=== PATIENT | female | born 1995 | race Caucasian/White ===

== ENCOUNTER 2020-04-15 15:56 | Emergency (ER) | payer OTHER, SELFPAY ==
[2020-04-15 16:13] VITALS: BP 115/74; PULSE 98; RESP 18; TEMP 36.6; O2SAT 99; BMI 54.8
[2020-04-15 17:12] VITALS: BP 122/78; PULSE 89; RESP 16; TEMP 36.6; O2SAT 100
--- NOTE | 2020-04-15 17:17 | PC.NURSE ---
pt was at [facility] and they said that her optic nerve is swollen and he needs her to be checked for pressures.
--- NOTE | 2020-04-15 17:28 | CT_ITS ---
EXAMINATION: CT HEAD WITHOUT CONTRAST CLINICAL INFORMATION: New papilledema. Rule out mass lesion COMPARISON: 09/05/2019 TECHNIQUE: Contiguous axial imaging was performed from the skull base to vertex without intravenous administration of contrast. This CT examination was performed using dose optimization techniques as appropriate, variously including the following: *Automated exposure control *Adjustment of mA and/or kV according to patient size (this includes techniques or standardized protocols for targeted exams where dose is matched to indication/reason for exam; i.e. extremities or head) *Use of iterative reconstruction technique DLP: 756 mGy-cm FINDINGS: There is no evidence of acute intracranial hemorrhage or territorial infarction. No abnormal mass effect or midline shift is seen. Saunders to white matter differentiation is well preserved. No extra-axial fluid collections are identified. The ventricles are normal in size. There is no abnormal attenuation within the brain parenchyma. The osseous structures and soft tissues are normal. The mastoid air cells and visualized portions of the paranasal sinuses are well aerated. CT/CT head/brain wo con IMPRESSION: No acute intracranial pathology.
--- NOTE | 2020-04-15 17:29 | ED_ITS ---
HPI - Eye Problem General Chief complaint: Eye Problems Stated complaint: EYE PROBLEM Time Seen by Provider: 04/15/20 16:41 Source: patient Mode of arrival: ambulatory Limitations: no limitations History of Present Illness HPI Narrative: 24 y/o female with history of myopia since childhood, astigmatism, dry eyes, DM2 diet controlled, obesity, seizures who presented to ED from [facility] with concern of new papilledema seen on exam. Patient reports going to her regular eye doctor yesterday, where her eyes were dilated and exam showed concerns for optic disc edema. She was referred to specialist at [facility] today - examination showed bilateral subconjunctival hemorrhage hemorrhage, IOP of 22 on the right and 20 on the left. Fundus exam with mild edema on the left. She was referred to the ED for emergent imaging. She reports new onset of painless red spots in her eyes 3 days ago. No vomiting or coughing. She reports new mild fogged vision in her left eye today. She also states the vision in her left eye has gotten worsen since she was last seen by her eye doctor in July 2019. chief complaint: vision change Onset (ago): day(s) (1) Onset description: sudden Duration: constant Location: left eye Eye Symptoms: redness and blurry vision Place: home Mechanism: none Severity: mild Severity scale (1-10): 5 Related Data Allergies Allergy/AdvReac Type Severity Reaction Status Date / Time nickel [NICKEL] Allergy Unknown RASH Unverified 01/17/20 16:27 Review of Systems Review of Systems: Constitutional: No Fever, No Chills ENT/Mouth: No sore throat, No Rhinorrhea, No Swallowing Difficulty Eyes: No Eye Pain, No Swelling, + Redness Cardiovascular: No Chest Pain, No SOB Respiratory: No Cough, No Sputum Gastrointestinal: No Nausea, No Vomiting, No Diarrhea, No abdominal Pain Genitourinary: No Dysuria, No Urinary Frequency, No Hematuria Musculoskeletal: No joint pain, No Myalgias Skin: No Skin Lesions, No rash Neuro: No Weakness, No Numbness, + Dizziness (intermittent), No Headache Psych: + Anxiety/Panic, No Depression Heme/Lymph: No Bruising, No Lymphadenopathy PMFSH Past Medical History Attestation statement: The following information was validated with the patient. Medical History Asthma Scoliosis Seizure Surgical History (Updated 04/15/20 @ 16:23 by Grecia Wills) Hx of appendectomy Social History Social History Alcohol intake: never Smoked in Last 30 Days: No Use of substances other than those prescribed or required for medical reasons: No Advance Directives: No Advance Directives Information Provided: No Physical Exam Vital Signs: Vital Signs: Last Vital Signs Temp 98 F 04/15/20 17:12 Pulse 89 04/15/20 17:12 Resp 16 04/15/20 17:12 BP 122/78 04/15/20 17:12 Pulse Ox 100 04/15/20 17:12 Body Mass Index 54.8 Appearance: Alert. Oriented X3. No acute distress. Eyes: Pupils equal, round and reactive to light. small bilateral conjunctival hemorrhage, EOMI. ENT: Pharynx normal. Neck: Normal inspection. Neck supple. CVS: Normal heart rate and rhythm. Pulses normal. Respiratory: No respiratory distress. Breath sounds normal. Abdomen: Obese, soft and nontender. +BS x4 Skin: Skin warm and dry. Normal skin color. Normal skin turgor. No rashes. Extremities: No lower extremity edema. Neuro: Oriented X 3. No motor deficit. No sensory deficit. Course Course Course Narrative: 24 y/o female presenting with newly diagnosed left sided optic disc edema referred by medical logistics specialist for prompt CT scan to r/o increased ICP or mass effect. CT scan ordered. [facility] from earlier this afternoon. Reevaluation(s) Reevaluation #1: CT scan negative. Case was d/w Dr. Jarquin - patient's presentation may be consistent with pseudotumor cerebri. No emergent need for LP at this time. She has history of scoliosis and chronic back pain. Given her body habitus she would benefit from LP under fluoroscopic guidance. She has a neurologist at [facility] and will call tomorrow morning to arrange outpatient LP. Patient expressed understanding of getting this arranged within the next week or 2 and will present back if she has worsening vision changes or headache. Stable for d/c. Consultations Consultation #1: Dr. 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 Your case was discussed with our eye doctor here - it is possible that you have increased spinal fluid causing compression of your nerve in your eye. Recommend you follow up with your Neurologist to arrange for a lumbar puncture in the next 1-2 weeks. This is not an emergency that needs to be performed today. If you develop worsening vision changes or headaches, come back to the ER for further evaluation. Weight loss is known to help with this condition. Follow up with your Neurology doctor as soon as possible. Interventions: ED Discharge Assessment Last Done: 04/15/20 20:57 Discharge Date/Time: 04/15/20 21:00 Print Language: Occitan
--- NOTE | 2020-04-15 20:59 | PC.NURSE ---
DR PENALOZA AT BEDSIDE WITH ADELINA CHAVEZ TO ASSESS PT.
== END 2020-04-15 21:00 | disposition home or self-care (01) ==
PROVIDERS: Emergency Provider Internal Medicine
DX: H11.33 Conjunctival hemorrhage, bilateral (principal); H57.12 Ocular pain, left eye
CPT/HCPCS: 70450; 99284

== ENCOUNTER 2021-04-01 17:01 | Emergency (ER) | payer OTHER, SELFPAY ==
--- NOTE | ~2021-04-01 | CT_ITS ---
EXAMINATION: CT ABDOMEN AND PELVIS WITHOUT CONTRAST CLINICAL INFORMATION: Rectal bleeding, rule out colitis COMPARISON: CT abdomen pelvis 09/25/2015 TECHNIQUE: Multidetector volumetric imaging was performed from the superior aspect of the liver through the pubic symphysis. Sagittal and coronal reformatted images were obtained on the technologist's workstation. This CT examination was performed using dose optimization techniques as appropriate, variously including the following: *Automated exposure control *Adjustment of mA and/or kV according to patient size (this includes techniques or standardized protocols for targeted exams where dose is matched to indication/reason for exam; i.e. extremities or head) *Use of iterative reconstruction technique DLP: 1416 mGy-cm FINDINGS: LUNG BASES: The visualized lung bases are unremarkable. LIVER, GALLBLADDER, AND BILIARY TREE: The liver is enlarged measuring 23.3 cm in cephalocaudad dimension and demonstrates decreased attenuation consistent with hepatic steatosis. Areas of focal fatty sparing are present around the gallbladder. No focal hepatic lesion or biliary ductal dilatation is present. The gallbladder is unremarkable with no evidence of radiopaque gallstones, gallbladder wall thickening, or obvious pericholecystic inflammatory changes. PANCREAS: Unremarkable. SPLEEN: Unremarkable. ADRENAL GLANDS: Unremarkable. KIDNEYS AND URETERS: The kidneys are normal in size, shape, and attenuation. No hydronephrosis, hydroureter, or calculi seen. No perinephric stranding. BLADDER: Unremarkable. GASTROINTESTINAL TRACT: The small and large bowel are unremarkable. There is no evidence of colitis. The appendix has been removed. ABDOMINAL WALL: No significant hernia is appreciated. LYMPH NODES: Normal. VASCULAR: Unremarkable. PELVIC VISCERA: An anteverted uterus is present. An abnormal adnexal mass or free intraperitoneal fluid is not seen. OSSEOUS STRUCTURES: Unremarkable. CT/CT abdomen pelvis wo con IMPRESSION: 1. Enlarged fatty liver. 2. No evidence of colitis. 3. Interval appendectomy Fleischner guidelines were followed.
[2021-04-01 17:07] VITALS: BP 136/89; PULSE 85; RESP 18; TEMP 36.9; O2SAT 98; BMI 53.2
[2021-04-01 19:08] LABS: MANUAL DIFF FLAG NO
--- NOTE | 2021-04-01 19:14 | ED.GIBLEED ---
HPI - GI Bleed General Chief complaint: Abdominal Pain <Shahida Mcneil MD - Last Filed: 04/01/21 21:08> Stated complaint: rectal bleed <Shahida Mcneil MD - Last Filed: 04/01/21 21:08> Time Seen by Provider: 04/01/21 19:12 <Shahida Mcneil MD - Last Filed: 04/01/21 21:08> Source: patient and family ( mother) <Shahida Mcneil MD - Last Filed: 04/01/21 21:08> Mode of arrival: ambulatory <Shahida Mcneil MD - Last Filed: 04/01/21 21:08> Limitations: no limitations <Shahida Mcneil MD - Last Filed: 04/01/21 21:08> History of Present Illness HPI Narrative: 25-year-old female came in for evaluation of rectal bleeding. Patient notice bright red blood rectal bleeding started since this morning, patient decline abdominal pain or discomfort, bleeding has been constant all day today, patient declined any dizziness or chest pain or feeling lightheadedness. Patient declines taking any NSAIDs or blood thinner. Patient declined any prior history of rectal bleeding. <Shahida Mcneil MD - Last Filed: 04/01/21 21:08> Related Data Home medications: Home Medications Medication Instructions Recorded Confirmed acetazolamide 250 mg tablet mg PO 04/01/21 clonidine HCl 0.1 mg tablet 0.1 mg PO BID 04/01/21 escitalopram oxalate 20 mg tablet 20 mg PO DAILY 04/01/21 hydroxyzine HCl 50 mg tablet 50 mg PO BEDTIME 04/01/21 mirtazapine 45 mg tablet 45 mg PO BEDTIME 04/01/21 oxcarbazepine 300 mg tablet 300 mg PO BID 04/01/21 prazosin 1 mg capsule 1 mg PO BEDTIME 04/01/21 sodium fluoride 1.1 %-potassium PO 04/01/21 nitrate 5 % dental paste Previous Rx's Medication Instructions Recorded hydrocortisone 1 %-pramoxine 1 % 1 appl DC QID PRN #10 g 04/01/21 rectal foam (Proctofoam HC) <Shahida Mcneil MD - Last Filed: 04/01/21 21:08> Allergies/Adverse reactions: Allergies Allergy/AdvReac Type Severity Reaction Status Date / Time nickel [NICKEL] Allergy Unknown RASH Verified 04/01/21 16:18 <Shahida Mcneil MD - Last Filed: 04/01/21 21:08> Review of Systems Review of Systems: All other systems are reviewed and are negative Constitutional: Reports as per HPI and Reports no additional constitutional complaints Eyes: Reports as per HPI and Reports no additional eye complaints Reports system reviewed and no additional complaints, except as documented Cardiovascular: Reports as per HPI and Reports no additional cardiovascular complaints Respiratory: Reports as per HPI and Reports no additional respiratory complaints Gastrointestinal: Reports as per HPI and Reports no additional gastrointestinal complaints Genitourinary: Reports no additional female genitourinary complaints Musculoskeletal: Reports no additional musculoskeletal complaints Skin/Breast: Reports system reviewed and no additional complaints, except as docu Psychiatric: Reports no additional psychiatric complaints Endocrine: Reports no additional endocrine complaints Hematologic/Lymphatic: Reports no additional hematologic/lymphatic complaints Allergic/Immunologic: Reports no additional allergic/immunologic complaints Reports system reviewed and no additional complaints, except as documented and Reports Abnormal speech present <Shahida Mcneil MD - Last Filed: 04/01/21 21:08> [facility] Past Medical History Medical History: Medical History Asthma Scoliosis Seizure <Shahida Mcneil MD - Last Filed: 04/01/21 21:08> Surgical History: Surgical History Hx of appendectomy <Shahida Mcneil MD - Last Filed: 04/01/21 21:08> Social History Social History: Social History Alcohol intake: never Advance Directives: No Advance Directives Information Provided: Yes Patient : No <Shahida Mcneil MD - Last Filed: 04/01/21 21:08> Physical Exam Vital Signs: Vital Signs: Last Vital Signs Temp 98.8 F 04/01/21 20:35 Pulse 67 04/01/21 20:35 Resp 18 04/01/21 20:35 BP 132/74 04/01/21 20:35 Pulse Ox 97 04/01/21 20:35 BMI result Body Mass Index 53.2 vital signs have been reviewed as appeared to be correct. Blood pressure normal. Heart rate normal. Respiration rate normal. Temperature normal. Oxygen saturation normal. <Shahida Mcneil MD - Last Filed: 04/01/21 21:08> Vital Signs: Last Vital Signs Temp 98.8 F 04/01/21 20:35 Pulse 67 04/01/21 20:35 Resp 18 04/01/21 20:35 BP 132/74 04/01/21 20:35 Pulse Ox 97 04/01/21 20:35 BMI result Body Mass Index 53.2 <Cristina Yancey DO - Last Filed: 04/01/21 21:51> Appearance: Alert. Oriented X3. No acute distress. Head: Normal external exam. Normocephalic. Atraumatic. No Sauceda signs noted. No raccoon eyes noted Eyes: PERRLA. EOMI. Conjunctiva and sclera normal. Eyelids normal. ENT: TM's Normal. Pharynx normal. Uvula midline. Moist mucous membranes. No trismus noted. No drooling noted. No muffled voice noted. Neck: Normal inspection. Neck supple. FROM. No adenopathy. Thyroid Normal. No meningeal signs. No neck mass noted. CVS: Normal heart rate and rhythm. Heart sound normal. No murmurs noted. Pulses normal throughout. Respiratory: No respiratory distress. Painless inspiration. Breath sounds normal. No wheezes/rales/rhonchi noted. Chest nontender. No accessory muscle usage noted or decreased air movement noted. Abdomen: Soft and nontender. Bowel sounds normal in all 4 quadrants. No distention noted. No organomegaly noted. No visible injury noted. Rectal exam: Exam was done in the present of RN Only via as a female hides soaker in the room, no external hemorrhoid, no internal hemorrhoid, bright red blood in the rectum. Back: No CVA tenderness. Full range of motion noted. Skin: Skin warm and dry. Normal skin color. Normal skin turgor. No rashes/lesions/lacerations noted. Extremities: No lower extremity edema. Extremities exhibit normal range of motion. Extremities nontender. Neuro: Oriented X 3. Cranial nerve exam: II-XII are grossly intact No motor deficit. No sensory deficit. Reflexes normal. <Shahida Mcneil MD - Last Filed: 04/01/21 21:08> Course Course Course Narrative: Assessment and plan. 25-year-old female came in for bright red blood per rectum for 1 day, patient otherwise hemodynamically stable with stable H&H, patient is actively bleeding per rectum, physical exam / CT of the abdomen pelvis show no definitive source of the bleed. Will admit the patient for observation and serial CBC, and inpatient GI consultation. <Shahida Mcneli MD - Last Filed: 04/01/21 21:08> Assessment and plan. 25-year-old female came in for bright red blood per rectum for 1 day, patient otherwise hemodynamically stable with stable H&H, patient is actively bleeding per rectum, physical exam / CT of the abdomen pelvis show no definitive source of the bleed. Will admit the patient for observation and serial CBC, and inpatient GI consultation. notified by hospitalist that she interviewed the patient and called GI Dr. Flaherty H/H and VS are stable these are hemorrhoids and after consultation via phone with GI this does not require admission. The patient does not want to stay either at this time after her discussion with Dr. Silva. Discharge recommended by hospitalist and GI doctor - Dr. Yancey note written by me to discuss discharge I was not involved in patient's direct care I did review her labs, VS and CT scan <Cristina Yancey DO - Last Filed: 04/01/21 21:51> MDM - GI Bleed Medical Records Attestation: I reviewed the patient's medical records. <Shahida Mcneil MD - Last Filed: 04/01/21 21:08> Lab Data Attestation: I reviewed the patient's lab results. <Shahida Mcneil MD - Last Filed: 04/01/21 21:08> Result diagrams: : 04/01/21 19:03 04/01/21 19:03 <Shahida Mcneil MD - Last Filed: 04/01/21 21:08> Labs: Lab Results 04/01/21 04/01/21 04/01/21 Range/Units 19:03 19:03 19:23 WBC 9.1 (4.8-10.8) X10*3/uL RBC 4.51 (4.20-5.50) X10*6/uL Hgb 13.0 (12.0-16.0) g/dl Hct 39.0 (37.0-47.0) % MCV 86.5 (80.0-98.0) fL MCH 28.8 (27.0-33.0) pg MCHC 33.3 (31.0-35.0) g/dl RDW 11.9 (11.0-16.0) % Plt Count 204 (160-400) X10*3/uL MPV 9.1 L (9.4-12.3) fL Immature Gran % (Auto) 0.4 (0.0-0.4) % Neut % (Auto) 67.3 (45-73) % Lymph % (Auto) 24.5 (20-40) % Parmer % (Auto) 6.0 (2-11) % Eos % (Auto) 1.5 (0-4) % Baso % (Auto) 0.3 (0-2) % Lymph # (Auto) 2.2 (1.2-4.9) X10*3/uL Parmer # (Auto) 0.5 (0.1-1.2) X10*3/uL Eos # (Auto) 0.1 (0.0-0.4) X10*3/uL Baso # (Auto) 0.0 (0.0-0.2) X10*3/uL Abs Immat Gran (auto) 0.04 H (0.00-0.03) X10*3/uL Absolute Neuts (auto) 6.1 (2.0-8.3) x10*3/uL Absolute Nucleated RBC 0.000 (0.0-0.012) X10*3/uL Nucleated RBC % (auto) 0.0 (0.0-0.2) /100WBC Sodium 140 (135-145) mmol/L Potassium 3.7 (3.3-5.1) mmol/L Chloride 114 H (96-108) mmol/L Carbon Dioxide 17 L (22-29) mmol/L Anion Gap 13 (12-20) BUN 15 (9-16) mg/dL Creatinine 0.92 (0.5-1.4) mg/dL Estim Creat Clear Calc 143.0 Estimated GFR > 60 Random Glucose 89 (60-115) mg/dL Calcium 9.2 (8.4-10.2) mg/dL Total Bilirubin 0.4 (0.0-1.0) mg/dL AST 29 (5-31) U/L ALT 31 (0-31) U/L Alkaline Phosphatase 57 (39-117) U/L Total Protein 6.9 (6.5-8.0) g/dL Albumin 4.2 (3.5-5.0) g/dL Stool Occult Blood POSITIVE (NEGATIVE) <Shahida Mcneil MD - Last Filed: 04/01/21 21:08> Lab Results 04/01/21 04/01/21 04/01/21 Range/Units 19:03 19:03 19:23 WBC 9.1 (4.8-10.8) X10*3/uL RBC 4.51 (4.20-5.50) X10*6/uL Hgb 13.0 (12.0-16.0) g/dl Hct 39.0 (37.0-47.0) % MCV 86.5 (80.0-98.0) fL MCH 28.8 (27.0-33.0) pg MCHC 33.3 (31.0-35.0) g/dl RDW 11.9 (11.0-16.0) % Plt Count 204 (160-400) X10*3/uL MPV 9.1 L (9.4-12.3) fL Immature Gran % (Auto) 0.4 (0.0-0.4) % Neut % (Auto) 67.3 (45-73) % Lymph % (Auto) 24.5 (20-40) % Parmer % (Auto) 6.0 (2-11) % Eos % (Auto) 1.5 (0-4) % Baso % (Auto) 0.3 (0-2) % Lymph # (Auto) 2.2 (1.2-4.9) X10*3/uL Parmer # (Auto) 0.5 (0.1-1.2) X10*3/uL Eos # (Auto) 0.1 (0.0-0.4) X10*3/uL Baso # (Auto) 0.0 (0.0-0.2) X10*3/uL Abs Immat Gran (auto) 0.04 H (0.00-0.03) X10*3/uL Absolute Neuts (auto) 6.1 (2.0-8.3) x10*3/uL Absolute Nucleated RBC 0.000 (0.0-0.012) X10*3/uL Nucleated RBC % (auto) 0.0 (0.0-0.2) /100WBC Sodium 140 (135-145) mmol/L Potassium 3.7 (3.3-5.1) mmol/L Chloride 114 H (96-108) mmol/L Carbon Dioxide 17 L (22-29) mmol/L Anion Gap 13 (12-20) BUN 15 (9-16) mg/dL Creatinine 0.92 (0.5-1.4) mg/dL Estim Creat Clear Calc 143.0 Estimated GFR > 60 Random Glucose 89 (60-115) mg/dL Calcium 9.2 (8.4-10.2) mg/dL Total Bilirubin 0.4 (0.0-1.0) mg/dL AST 29 (5-31) U/L ALT 31 (0-31) U/L Alkaline Phosphatase 57 (39-117) U/L Total Protein 6.9 (6.5-8.0) g/dL Albumin 4.2 (3.5-5.0) g/dL Stool Occult Blood POSITIVE (NEGATIVE) <Cristina Yancey DO - Last Filed: 04/01/21 21:51> Imaging Data CT scan - abdomen: Radiologist's impression: IMPRESSION: 1.? Enlarged fatty liver. 2.? No evidence of colitis. 3.? Interval appendectomy? <Shahida Mcneil MD - Last Filed: 04/01/21 21:08> Discharge Plan Discharge Clinical Impression: Rectal bleeding Hemorrhoids Qualifiers: Hemorrhoid type: unspecified Qualified Code(s): K64.9 - Unspecified hemorrhoids <Shahida Mcneil MD - Last Filed: 04/01/21 21:08> Patient Disposition: Home, Self-Care <Shahida Mcneil MD - Last Filed: 04/01/21 21:08> Instructions: Hemorrhoids (ED), Rectal Bleeding (ED) <Shahida Mcneil MD - Last Filed: 04/01/21 21:08> Additional Instructions: return to ED for any worsening symptoms or concerns please avoid any aspirin, motrin, aleve <Shahida Mcneil MD - Last Filed: 04/01/21 21:08> Prescriptions: New Proctofoam HC 1-1 % foam 1 appl DC QID PRN (Reason: hemorrhoids) Qty: 10 RF: 0 No Action oxcarbazepine 300 mg tablet 300 mg PO BID RF: 0 escitalopram oxalate 20 mg tablet 20 mg PO DAILY RF: 0 mirtazapine 45 mg tablet 45 mg PO BEDTIME RF: 0 hydroxyzine HCl 50 mg tablet 50 mg PO BEDTIME RF: 0 acetazolamide 250 mg tablet PO RF: 0 prazosin 1 mg capsule 1 mg PO BEDTIME RF: 0 clonidine HCl 0.1 mg tablet 0.1 mg PO BID RF: 0 sodium fluoride-pot nitrate 1.1-5 % paste PO RF: 0 <Shahida Mcneil MD - Last Filed: 04/01/21 21:08> Referrals: Ramon Flaherty [Physician] - 1 week <Shahida Mcneil MD - Last Filed: 04/01/21 21:08> Stand Alone Forms: Work/School Release <Shahida Mcneil MD - Last Filed: 04/01/21 21:08>
[2021-04-01 19:15] LABS: Basophils Percent Auto 0.3 % (0-2); Eosinophils Absolute Auto 0.1 X10*3/uL (0.0-0.4); Eosinophils Percent Auto 1.5 % (0-4); Imm Gran Abs Auto 0.04 X10*3/uL (0.00-0.03); Imm Gran Pct Auto 0.4 % (0.0-0.4); Lymphocytes Absolute Auto 2.2 X10*3/uL (1.2-4.9); Lymphocytes Percent Auto 24.5 % (20-40); Mean Corpuscular HGB Conc 33.3 g/dl (31.0-35.0); Mean Corpuscular Hemoglobin 28.8 pg (27.0-33.0); Mean Corpuscular Volume 86.5 fL (80.0-98.0); Mean Platelet Volume 9.1 fL (9.4-12.3); Monocytes Absolute Auto 0.5 X10*3/uL (0.1-1.2); Neutrophils Absolute Auto 6.1 x10*3/uL (2.0-8.3); Neutrophils Percent Auto 67.3 % (45-73); Platelet Count 204 X10*3/uL (160-400); Red Blood Count 4.51 X10*6/uL (4.20-5.50); Red Cell Distribution Width 11.9 % (11.0-16.0); White Blood Count 9.1 X10*3/uL (4.8-10.8)
[2021-04-01 19:26] LABS: Alanine Aminotransferase 31 U/L (0-31); Albumin Level 4.2 g/dL (3.5-5.0); Alkaline Phosphatase 57 U/L (39-117); Anion Gap 13 (12-20); Aspartate Amino Transferase 29 U/L (5-31); Bilirubin Total 0.4 mg/dL (0.0-1.0); Blood Urea Nitrogen 15 mg/dL (9-16); Calcium 9.2 mg/dL (8.4-10.2); Carbon Dioxide 17 mmol/L (22-29); Chloride 114 mmol/L (96-108); Estimated Glomerular Filt Rate > 60; Glucose Random 89 mg/dL (60-115); Potassium 3.7 mmol/L (3.3-5.1); Sodium 140 mmol/L (135-145); Total Protein 6.9 g/dL (6.5-8.0)
[2021-04-01 19:44] LABS: OBS Int Ctl Valid YES; OBS1 POSITIVE (NEGATIVE)
[2021-04-01 20:35] VITALS: BP 132/74; PULSE 67; RESP 18; TEMP 37.1; O2SAT 97
== END 2021-04-01 21:56 | disposition home or self-care (01) ==
PROVIDERS: Emergency Provider Emergency Medicine; PCP Internal Medicine
DX: K64.9 Unspecified hemorrhoids (principal); K62.5 Hemorrhage of anus and rectum; R10.9 Unspecified abdominal pain; Z79.899 Other long term (current) drug therapy
CPT/HCPCS: 36415; 74176; 80053; 82272; 85025; 99283; 99284

== ENCOUNTER 2023-08-31 13:17 | Outpatient (AMB) | payer OTHER, SELFPAY ==
--- NOTE | 2023-08-31 13:57 | MHC.OFFWIV ---
Intake Vital Signs 08/31/23 13:58 Height 5 ft 7 in BP 106/66 Blood Pressure Location Rt brachial Position Sitting Pulse 70 Pulse Source Pulse Oximeter Temp 98.4 F Temp Source Oral Pulse Oximetry (%) 96 Oxygen Delivery Method Room Air Intake Visit Reasons: EP abdominal bruising hot/painful to touch Intake Note: pt is here for abd bruising hot and painful to touch Patient Tobacco Use Status: Current everyday Tobacco user Allergies nickel [NICKEL] Allergy (Unknown, Verified 08/31/23 13:59) RASH Do you need a note to return to daycare/school/sports/work: Yes HPI EP abdominal bruising hot/painful to touch HPI Details 27 year old female patient presents to the [place] clinic today with a bruise on her lower abdomen. She noticed this yesterday. She states it is mildly painful and feels tender like a bruise. She denies any known trauma to this area, however she has a 2 y/o daughter who often jumps on her stomach when playing. Denies any sc medication injection into belly. Denies any fevers. Denies any discharge from area. [facility] Medical History Seizure Asthma Scoliosis Surgical History Hx of appendectomy Social History Alcohol intake: never Patient Tobacco Use Status: Current everyday Tobacco user Review of Systems Const All systems reviewed & are unremarkable except as noted in HPI and below Physical Exam Vital Signs: Last Vital Signs Temp 98.4 F 08/31/23 13:58 Pulse 70 08/31/23 13:58 BP 106/66 08/31/23 13:58 Pulse Ox 96 08/31/23 13:58 Oxygen Delivery Method Room Air 08/31/23 13:58 Const General: cooperative, comfortable and no acute distress Resp Effort & Inspection: normal respiratory effort GI Inspection: Yes normal to inspection Palpation (GI): Soft to palpation (nontender) Skin Other: Yellowing/purple bruise noted to lower abdomen, under panus. Approx 3-4cm in diameter. No surrounding erythema, excessive warmth, open areas/drainage. Mildly tender to palpation. Area and abdomen is soft. Extrem General: Yes capillary refill normal and Yes no clubbing, cyanosis or edema Psych Appearance: grossly normal Mental Status: mental status grossly normal Speech and movement: Normal speech and movement present Assessment & Plan Assessment & Plan (1) Superficial bruising: Code(s): T14.8XXA - Other injury of unspecified body region, initial encounter Plan: Advised patient to monitor site and f/u with us or PCP if bruising worsens, or if any concerning symptoms surrounding bruise develop, such as increased tenderness, erythema, warmth, drainage, or if she notices ongoing/easy bruising. She verbalizes understanding and agrees to plan. Coding Level of Care Code Est Pt Level 4 (63372) Diagnoses Superficial bruising T14.8XXA
[2023-08-31 13:58] VITALS: BP 106/66; PULSE 70; TEMP 36.9; O2SAT 96
== END 2023-08-31 14:40 | disposition home or self-care (01) ==
PROVIDERS: PCP Family Medicine; Visit Provider Nurse Practitioner Family
DX: T14.8XXA Other injury of unspecified body region, initial encounter (principal)
CPT/HCPCS: 99214

== ENCOUNTER 2024-05-07 15:02 | Emergency (ER) | payer OTHER, SELFPAY ==
[2024-05-07 15:23] VITALS: BP 148/62; PULSE 110; RESP 20; TEMP 36.2; O2SAT 95; BMI 51.7
--- NOTE | 2024-05-07 15:27 | ED.GENADULT ---
HPI - General Adult General Chief complaint: Abdominal Pain Stated complaint: Rectal bleeding, abd pain History of Present Illness HPI narrative: Patient left before completion of treatment by ED provider. Related Data Home Medications ?Medication ?Instructions ?Recorded ?Confirmed acetazolamide 250 mg tablet mg PO 04/01/21 clonidine HCl 0.1 mg tablet 0.1 mg PO BID 04/01/21 escitalopram oxalate 20 mg tablet 20 mg PO DAILY 04/01/21 hydroxyzine HCl 50 mg tablet 50 mg PO BEDTIME 04/01/21 mirtazapine 45 mg tablet 45 mg PO BEDTIME 04/01/21 oxcarbazepine 300 mg tablet 300 mg PO BID 04/01/21 prazosin 1 mg capsule 1 mg PO BEDTIME 04/01/21 sodium fluoride 1.1 %-potassium PO 04/01/21 nitrate 5 % dental paste aripiprazole 5 mg tablet 5 mg PO DAILY 08/31/23 trazodone 100 mg tablet 200 mg PO BEDTIME PRN 08/31/23 Previous Rx's ?Medication ?Instructions ?Recorded hydrocortisone 1 %-pramoxine 1 % 1 appl RI QID PRN hemorrhoids #10 04/01/21 rectal foam (Proctofoam HC) grams Allergies Allergy/AdvReac Type Severity Reaction Status Date / Time nickel [NICKEL] Allergy Unknown RASH Verified 05/07/24 15:26 [facility] Past Medical History Medical History Seizure Asthma Scoliosis Surgical History Hx of appendectomy Social History Social History Alcohol intake: never Patient Tobacco Use Status: Current everyday Tobacco user Advance Directives: No Advance Directives Information Provided: No Physical Exam ED Vital Signs: Vital Signs - 24 hr 05/07/24 15:23 Temperature 97.1 F Pulse Rate 110 H Respiratory Rate 20 Blood Pressure 148/62 H Pulse Oximetry 95 Oxygen Delivery Method Room Air BMI result Body Mass Index 51.7 Course Course Course Narrative: RmE: Done by ADELINA Santos. 28-year-old female presents to ED for left-sided lower abdominal pain and rectal bleeding. Patient states history of hemorrhoids but this is different due to no rectal pain but having abdominal pain and rectal bleeding. Labs ordered. Medical Decision Making Lab Data 05/07/24 16:37 05/07/24 16:37 Labs: Lab Results 05/07/24 Range/Units 16:37 WBC 9.9 (4.8-10.8) X10*3/uL RBC 4.68 (4.20-5.50) X10*6/uL Hgb 13.3 (12.0-16.0) g/dl Hct 40.7 (37.0-47.0) % MCV 87.0 (80.0-98.0) fL MCH 28.4 (27.0-33.0) pg MCHC 32.7 (31.0-35.0) g/dl RDW 12.4 (11.0-16.0) % Plt Count 227 (160-400) X10*3/uL MPV 9.2 L (9.4-12.3) fL Immature Gran % (Auto) 0.2 (0.0-0.4) % Neut % (Auto) 60.5 (45-73) % Lymph % (Auto) 31.4 (20-40) % [place] % (Auto) 6.0 (2-11) % Eos % (Auto) 1.4 (0-4) % Baso % (Auto) 0.5 (0-2) % Lymph # (Auto) 3.1 (1.2-4.9) X10*3/uL [place] # (Auto) 0.6 (0.1-1.2) X10*3/uL Eos # (Auto) 0.1 (0.0-0.4) X10*3/uL Baso # (Auto) 0.1 (0.0-0.2) X10*3/uL Abs Immat Gran (auto) 0.02 (0.00-0.03) X10*3/uL Absolute Neuts (auto) 6.0 (2.0-8.3) x10*3/uL Absolute Nucleated RBC 0.000 (0.0-0.012) X10*3/uL Nucleated RBC % (auto) 0.0 (0.0-0.2) /100WBC Sodium 142 (135-145) mmol/L Potassium 3.9 (3.3-5.1) mmol/L Chloride 113 H (96-108) mmol/L Carbon Dioxide 22 (22-29) mmol/L Anion Gap 11 L (12-20) BUN 19 H (9-16) mg/dL Creatinine 1.05 (0.5-1.4) mg/dL Estim Creat Clear Calc 119.7 Estimated GFR > 60 Random Glucose 91 (60-115) mg/dL Calcium 9.4 (8.4-10.2) mg/dL Total Bilirubin 0.2 (0.0-1.0) mg/dL AST 44 H (5-31) U/L ALT 50 H (0-31) U/L Alkaline Phosphatase 59 (39-117) U/L Total Protein 7.2 (6.5-8.0) g/dL Albumin 4.3 (3.5-5.0) g/dL Beta HCG, Quant < 2 mIU/mL Discharge Plan Discharge Clinical Impression: Rectal bleeding Patient Disposition: Left W/O Completing Treatment Prescriptions: No Action Proctofoam HC 1-1 % foam 1 appl RI QID PRN (Reason: hemorrhoids) Qty: 10 0RF oxcarbazepine 300 mg tablet 300 mg PO BID escitalopram oxalate 20 mg tablet 20 mg PO DAILY mirtazapine 45 mg tablet 45 mg PO BEDTIME hydroxyzine HCl 50 mg tablet 50 mg PO BEDTIME acetazolamide 250 mg tablet PO prazosin 1 mg capsule 1 mg PO BEDTIME clonidine HCl 0.1 mg tablet 0.1 mg PO BID sodium fluoride-pot nitrate 1.1-5 % paste PO trazodone 100 mg tablet 200 mg PO BEDTIME PRN aripiprazole 5 mg tablet 5 mg PO DAILY Discharge Date/Time: 05/07/24 22:20
[2024-05-07 16:40] LABS: MANUAL DIFF FLAG NO
[2024-05-07 16:47] LABS: Basophils Absolute Auto 0.1 X10*3/uL (0.0-0.2); Basophils Percent Auto 0.5 % (0-2); Eosinophils Absolute Auto 0.1 X10*3/uL (0.0-0.4); Eosinophils Percent Auto 1.4 % (0-4); Hematocrit 40.7 % (37.0-47.0); Hemoglobin 13.3 g/dl (12.0-16.0); Imm Gran Abs Auto 0.02 X10*3/uL (0.00-0.03); Imm Gran Pct Auto 0.2 % (0.0-0.4); Lymphocytes Absolute Auto 3.1 X10*3/uL (1.2-4.9); Lymphocytes Percent Auto 31.4 % (20-40); Mean Corpuscular HGB Conc 32.7 g/dl (31.0-35.0); Mean Corpuscular Hemoglobin 28.4 pg (27.0-33.0); Mean Platelet Volume 9.2 fL (9.4-12.3); Monocytes Absolute Auto 0.6 X10*3/uL (0.1-1.2); Neutrophils Percent Auto 60.5 % (45-73); Platelet Count 227 X10*3/uL (160-400); Red Blood Count 4.68 X10*6/uL (4.20-5.50); Red Cell Distribution Width 12.4 % (11.0-16.0); White Blood Count 9.9 X10*3/uL (4.8-10.8)
[2024-05-07 17:05] LABS: Alanine Aminotransferase 50 U/L (0-31); Albumin Level 4.3 g/dL (3.5-5.0); Alkaline Phosphatase 59 U/L (39-117); Anion Gap 11 (12-20); Aspartate Amino Transferase 44 U/L (5-31); Bilirubin Total 0.2 mg/dL (0.0-1.0); Blood Urea Nitrogen 19 mg/dL (9-16); Calcium 9.4 mg/dL (8.4-10.2); Carbon Dioxide 22 mmol/L (22-29); Chloride 113 mmol/L (96-108); Creatinine Clr Calc Pharmacy 119.7; Estimated Glomerular Filt Rate > 60; Glucose Random 91 mg/dL (60-115); Potassium 3.9 mmol/L (3.3-5.1); Sodium 142 mmol/L (135-145); Total Protein 7.2 g/dL (6.5-8.0)
[2024-05-07 17:07] LABS: HCG Quantitative < 2 mIU/mL
== END 2024-05-07 22:20 | disposition left against medical advice (07) ==
PROVIDERS: Physician Assistant; Emergency Provider Emergency Medicine
DX: R10.32 Left lower quadrant pain (principal); K62.5 Hemorrhage of anus and rectum; J45.909 Unspecified asthma, uncomplicated
CPT/HCPCS: 36415; 80053; 84702; 85025; 99281; 99283

== ENCOUNTER → 2024-05-08 16:19 | Outpatient (BNV) | payer OTHER, SELFPAY | PROVIDERS: Emergency Provider Emergency Medicine Emergency Medical Services; Visit Provider Radiology Diagnostic Radiology | DX: K62.5 Hemorrhage of anus and rectum (principal); R10.32 Left lower quadrant pain | CPT/HCPCS: 74177 ==

== ENCOUNTER 2024-08-10 18:09 | Emergency (ER) | payer OTHER, SELFPAY ==
[2024-08-10 18:12] VITALS: BP 136/85; PULSE 107; RESP 20; TEMP 37; O2SAT 95; BMI 58.0
--- NOTE | 2024-08-10 18:13 | ED.GENADULT ---
HPI - General Adult General Chief complaint: Neuro Symptoms/Deficit Stated complaint: hx of seizures/hit head few days ago/seizure today Time Seen by Provider: 08/10/24 21:08 Source: patient Mode of arrival: ambulatory Limitations: no limitations History of Present Illness ED Provider: HPI narrative: Patient's history of seizure disorder used to be on Trileptal also does have history of pseudotumor cerebri taking acetazolamide has not seen a neurologist for several months and has not taken the medication since 06/26 as she does not have the medication at home been having seizures almost every 3-4 weeks today while at work she had a small seizure lasted for 2 minutes without any injury generalized tonic-clonic seizure with postictal phase Related Data Home Medications ?Medication ?Instructions ?Recorded ?Confirmed acetazolamide 250 mg tablet mg PO 04/01/21 clonidine HCl 0.1 mg tablet 0.1 mg PO BID 04/01/21 escitalopram oxalate 20 mg tablet 20 mg PO DAILY 04/01/21 hydroxyzine HCl 50 mg tablet 50 mg PO BEDTIME 04/01/21 mirtazapine 45 mg tablet 45 mg PO BEDTIME 04/01/21 oxcarbazepine 300 mg tablet 300 mg PO BID 04/01/21 prazosin 1 mg capsule 1 mg PO BEDTIME 04/01/21 sodium fluoride 1.1 %-potassium PO 04/01/21 nitrate 5 % dental paste aripiprazole 5 mg tablet 5 mg PO DAILY 08/31/23 trazodone 100 mg tablet 200 mg PO BEDTIME PRN 08/31/23 Previous Rx's ?Medication ?Instructions ?Recorded hydrocortisone 1 %-pramoxine 1 % 1 appl MI QID PRN hemorrhoids #10 04/01/21 rectal foam (Proctofoam HC) grams dicyclomine 10 mg capsule 20 mg (2 x 10 mg) PO TID 3 days 05/08/24 #18 caps acetazolamide 250 mg tablet 500 mg (2 x 250 mg) PO BID #360 08/10/24 tabs oxcarbazepine 300 mg tablet 300 mg PO BID #180 tabs 08/10/24 Allergies Allergy/AdvReac Type Severity Reaction Status Date / Time nickel [NICKEL] Allergy Unknown RASH Verified 08/10/24 18:17 Review of Systems Review of Systems: Yes all other systems are reviewed and are negative PMF Past Medical History Medical History Seizure Asthma Scoliosis Surgical History Hx of appendectomy Social History Social History Alcohol intake: never Patient Tobacco Use Status: Current everyday Tobacco user Smoked in Last 30 Days: No Use of substances other than those prescribed or required for medical reasons: No Advance Directives: No Advance Directives Information Provided: Yes Physical Exam ED Vital Signs: Vital Signs - 24 hr 08/10/24 18:12 08/10/24 21:45 08/10/24 21:52 Temperature 98.6 F 98.5 F 98.5 F Pulse Rate 107 H 83 83 Respiratory Rate 20 18 18 Blood Pressure 136/85 124/77 124/77 Pulse Oximetry 95 95 95 Oxygen Delivery Method Room Air Room Air Room Air BMI result Body Mass Index 58.0 Appearance: Alert. Oriented X3. No acute distress. Eyes: PERRLA, No Nystagmus HEENT: Pharynx normal. Oral Mucosa moist no tongue bite atraumatic normocephalic Neck: Normal inspection. Neck supple. CVS: Normal heart rate and rhythm. Pulses normal. Respiratory: No respiratory distress. Equal air entry bilateral, no wheezing/rales/rhonchi Abdomen: Soft and nontender. Bowel sounds are present, no mass palpable, no CVA tenderness Skin: Skin warm and dry. Normal skin color. Normal skin turgor. Extremities: No lower extremity edema. No calf tenderness Neuro: Oriented X 3. No motor deficit. No sensory deficit.No cerebellar signs , cranial nerves II-XII intact Course Course Course Narrative: This is an RME performed by Yulia Walters CNP: Additional HPI, ROS, PE not included below will be deferred to primary provider. Patient is a 28-year-old female who presents emergency department for evaluation, she has a history of seizure disorder, states she was diagnosed with pseudotumor cerebri a few years back. She is taking oxcarbazepine and acetazolamide for this. She reports a few days ago she was taking apart a day bed by herself, was rushing to get things done, not staying well hydrated and she ultimately syncopized at a friend's house. She states that syncope is not uncommon for her. She is somewhat felt it coming on. Evidently she was unresponsive for 2 minutes, struck her posterior head against a piece of wood. She went to an emergency department about 2-3 hours away from here, had no imaging performed but was diagnosed with a mild concussion. She has been feeling well in fine. She went to work this morning where she had a seizure, she felt an aura that it was going to come on, sat down on the floor, seizure occurred. She was sent home from work and advised that she can not return until medically cleared. She contacted her primary care doctor's office today to seek evaluation as well as to get refills of her oxcarbazepine and acetazolamide, was advised that she would need to seek refills from Neurology as they would not be prescribing it for her. States that she has been off of her medications for about 1-1.5 months. Has not seen Neurology and a little over a year, was not satisfied with her experience there does not recall the office. She states that she feels well enough to return to work Medications Administered Discontinued Medications Generic Name Dose Route Start Last Admin Trade Name Freq PRN Reason Stop Dose Admin Acetazolamide 500 mg 08/10/24 21:28 08/10/24 21:48 Acetazolamide 250 Mg Tablet PO 08/10/24 21:29 500 mg ONCE ONE Administration Oxcarbazepine 300 mg 08/10/24 21:21 08/10/24 21:48 Oxcarbazepine 300 Mg Tablet PO 08/10/24 21:22 300 mg ONCE ONE Administration Medical Decision Making Medical Decision Making [facility] Narrative: Patient prescribed Trileptal and acetazolamide advised to follow with neurologist Lab Data [facility] Lab Attestation statement: I reviewed the patient's lab results. 08/10/24 18:31 08/10/24 18:31 Labs: Lab Results 08/10/24 08/10/24 Range/Units 18:31 21:35 WBC 6.9 (4.8-10.8) X10*3/uL RBC 4.66 (4.20-5.50) X10*6/uL Hgb 13.1 (12.0-16.0) g/dl Hct 40.1 (37.0-47.0) % MCV 86.1 (80.0-98.0) fL MCH 28.1 (27.0-33.0) pg MCHC 32.7 (31.0-35.0) g/dl RDW 12.0 (11.0-16.0) % Plt Count 205 (160-400) X10*3/uL MPV 8.9 L (9.4-12.3) fL Immature Gran % (Auto) 0.1 (0.0-0.4) % Neut % (Auto) 50.6 (45-73) % Lymph % (Auto) 40.3 H (20-40) % [place] % (Auto) 7.1 (2-11) % Eos % (Auto) 1.3 (0-4) % Baso % (Auto) 0.6 (0-2) % Lymph # (Auto) 2.8 (1.2-4.9) X10*3/uL [place] # (Auto) 0.5 (0.1-1.2) X10*3/uL Eos # (Auto) 0.1 (0.0-0.4) X10*3/uL Baso # (Auto) 0.0 (0.0-0.2) X10*3/uL Abs Immat Gran (auto) 0.01 (0.00-0.03) X10*3/uL Absolute Neuts (auto) 3.5 (2.0-8.3) x10*3/uL Absolute Nucleated RBC 0.000 (0.0-0.012) X10*3/uL Nucleated RBC % (auto) 0.0 (0.0-0.2) /100WBC Sodium 142 (135-145) mmol/L Potassium 3.8 (3.3-5.1) mmol/L Chloride 114 H (96-108) mmol/L Carbon Dioxide 20 L (22-29) mmol/L Anion Gap 12 (12-20) BUN 16 (9-16) mg/dL Creatinine 1.53 H (0.5-1.4) mg/dL Estim Creat Clear Calc 85.5 Estimated GFR 40 Random Glucose 99 (60-115) mg/dL Calcium 9.1 (8.4-10.2) mg/dL Total Bilirubin 0.3 (0.0-1.0) mg/dL AST 50 H (5-31) U/L ALT 54 H (0-31) U/L Alkaline Phosphatase 55 (39-117) U/L Total Protein 6.8 (6.5-8.0) g/dL Albumin 4.0 (3.5-5.0) g/dL Urine Color Yellow Urine Appearance Clear Urine pH 6.5 (5.0-9.0) Ur Specific [place] 1.025 (1.005-1.025) Urine Protein Negative (Neg-Trace) mg/dL Urine Glucose (UA) Negative (Negative) mg/dL Urine Ketones Trace (Negative) mg/dL Urine Blood Negative (Negative) Urine Nitrite Negative (Negative) Ur Leukocyte Esterase Negative (Negative) Discharge Plan Discharge Clinical Impression: Epilepsy Patient Disposition: Home, Self-Care Instructions: Epilepsy (ED) Additional Instructions: Take your medications on time Follow up with neurologist You may go back to work as long as you are taking your medications Prescriptions: New oxcarbazepine 300 mg tablet 300 mg PO BID Qty: 180 3RF acetazolamide 250 mg tablet 500 mg PO BID Qty: 360 2RF No Action Proctofoam HC 1-1 % foam 1 appl MI QID PRN (Reason: hemorrhoids) Qty: 10 0RF dicyclomine 10 mg capsule 20 mg PO TID 3 Days Qty: 18 0RF oxcarbazepine 300 mg tablet 300 mg PO BID escitalopram oxalate 20 mg tablet 20 mg PO DAILY mirtazapine 45 mg tablet 45 mg PO BEDTIME hydroxyzine HCl 50 mg tablet 50 mg PO BEDTIME acetazolamide 250 mg tablet PO prazosin 1 mg capsule 1 mg PO BEDTIME clonidine HCl 0.1 mg tablet 0.1 mg PO BID sodium fluoride-pot nitrate 1.1-5 % paste PO trazodone 100 mg tablet 200 mg PO BEDTIME PRN aripiprazole 5 mg tablet 5 mg PO DAILY Stand Alone Forms: Work/School Release Interventions: ED Discharge Assessment Last Done: 08/10/24 21:52 Discharge Date/Time: 08/10/24 21:53 Print Language: Pashto
[2024-08-10 18:42] LABS: MANUAL DIFF FLAG NO
[2024-08-10 18:43] LABS: Basophils Percent Auto 0.6 % (0-2); Eosinophils Absolute Auto 0.1 X10*3/uL (0.0-0.4); Eosinophils Percent Auto 1.3 % (0-4); Hematocrit 40.1 % (37.0-47.0); Hemoglobin 13.1 g/dl (12.0-16.0); Imm Gran Abs Auto 0.01 X10*3/uL (0.00-0.03); Imm Gran Pct Auto 0.1 % (0.0-0.4); Lymphocytes Absolute Auto 2.8 X10*3/uL (1.2-4.9); Lymphocytes Percent Auto 40.3 % (20-40); Mean Corpuscular HGB Conc 32.7 g/dl (31.0-35.0); Mean Corpuscular Hemoglobin 28.1 pg (27.0-33.0); Mean Corpuscular Volume 86.1 fL (80.0-98.0); Mean Platelet Volume 8.9 fL (9.4-12.3); Monocytes Absolute Auto 0.5 X10*3/uL (0.1-1.2); Monocytes Percent Auto 7.1 % (2-11); Neutrophils Absolute Auto 3.5 x10*3/uL (2.0-8.3); Neutrophils Percent Auto 50.6 % (45-73); Platelet Count 205 X10*3/uL (160-400); Red Blood Count 4.66 X10*6/uL (4.20-5.50); White Blood Count 6.9 X10*3/uL (4.8-10.8)
--- NOTE | 2024-08-10 18:56 | MHC.EDTECH ---
pt refuse seizure pads on one side of the stretcher due to wanting bed side table near her. nurse aware.
[2024-08-10 19:09] LABS: Alanine Aminotransferase 54 U/L (0-31); Alkaline Phosphatase 55 U/L (39-117); Anion Gap 12 (12-20); Aspartate Amino Transferase 50 U/L (5-31); Bilirubin Total 0.3 mg/dL (0.0-1.0); Blood Urea Nitrogen 16 mg/dL (9-16); Calcium 9.1 mg/dL (8.4-10.2); Carbon Dioxide 20 mmol/L (22-29); Chloride 114 mmol/L (96-108); Creatinine Clr Calc Pharmacy 85.5; Estimated Glomerular Filt Rate 40; Glucose Random 99 mg/dL (60-115); Potassium 3.8 mmol/L (3.3-5.1); Sodium 142 mmol/L (135-145); Total Protein 6.8 g/dL (6.5-8.0)
[2024-08-10 21:43] LABS: Appearance Urine Clear; Color Urine Yellow; Glucose Urine UA Negative (Negative); Leukocyte Esterase Urine Negative (Negative); Nitrite Urine Negative (Negative); PH 6.5 (5.0-9.0); Specific Gravity - Urine 1.025 (1.005-1.025); Urine Blood Negative (Negative); Urine Ketones Trace mg/dL (Negative); Urine Protein Negative (Neg-Trace)
[2024-08-10 21:45] VITALS: BP 124/77; PULSE 83; RESP 18; TEMP 36.9; O2SAT 95
[2024-08-10] MEDS: acetaZOLAMIDE 250 MG TABLET 500 MG PO (21:48)
[2024-08-10] MEDS: OXcarbazepine 300 MG TABLET PO (21:48)
[2024-08-10 21:52] VITALS: BP 124/77; PULSE 83; RESP 18; TEMP 36.9; O2SAT 95
== END 2024-08-10 21:53 | disposition home or self-care (01) ==
PROVIDERS: Nurse Practitioner Family; Emergency Provider Internal Medicine; PCP Family Medicine
DX: G40.909 Epilepsy, unspecified, not intractable, without status epilepticus (principal); Z79.899 Other long term (current) drug therapy
CPT/HCPCS: 36415; 80053; 81003; 85025; 99283; 99284

== ENCOUNTER 2024-09-13 14:31 | Emergency (ER) | payer OTHER, SELFPAY ==
--- NOTE | ~2024-09-13 | US_ITS ---
EXAMINATION: US ABDOMEN LIMITED CLINICAL INFORMATION: Right upper quadrant pain.. COMPARISON: None. Correlation made with CT abdomen and pelvis 05/08/2024. TECHNIQUE: Real-time imaging of the gallbladder and common bile duct. FINDINGS: GALLBLADDER: Gallbladder demonstrates a 2.4 cm intraluminal gallstone. No gallbladder wall thickening, pericholecystic fluid, or significant distention. Negative sonographic Pittman's sign. COMMON BILE DUCT: Normal in caliber measuring 0.3 cm in diameter. FREE FLUID: None. US/US abdomen limited IMPRESSION: 1. Cholelithiasis without evidence of acute cholecystitis. 2. Normal caliber common bile duct. Electronically signed by: Rayray Torres MD 09/13/2024 03:42 PM EDT
[2024-09-13 14:40] VITALS: BP 106/72; BP 120/85; PULSE 73; PULSE 80; RESP 18; TEMP 36.2; O2SAT 94; O2SAT 97; BMI 54.8
--- NOTE | 2024-09-13 14:42 | ED_ITS ---
HPI - General Adult General Chief complaint: Abdominal Pain Stated complaint: ABD PAIN Time Seen by Provider: 09/13/24 21:05 Source: patient, RN notes reviewed and old records reviewed Mode of arrival: ambulatory Limitations: no limitations History of Present Illness ED Provider: Karen Jameson PA-C HPI narrative: 28-year-old female presenting to the emergency department today for evaluation of right upper quadrant pain. Family history of gallstones. Patient's surgical history significant for appendectomy years ago. Patient reports for the past 3 days she has had RUQ pain that is described as colicky (worse with eating certain foods). She has fam hx of gallstones but has never had one before. Her pain feels well controlled right now but she is concerned it will get worse so sought medical attention. SHe has not had any nausea/ vomiting or diarrhea. [place] more 'gasey' but otherwise no burping or epigastric pain. NO fevers, coughing, sob, dizziness, headaches or sxs. Denies change of . No treated in any way, but did call out of work. After imaging results discussed with patient. She reports after having another exam/ imaging recently, she was told she had a gallstone in her gallbladder, but that is was benign at the time. This was few weeks ago. She was referred to a general surgeon and the consult is coming up. With this information, she felt nervous and came to the ED. Related Data Home Medications ?Medication ?Instructions ?Recorded ?Confirmed acetazolamide 250 mg tablet mg PO 04/01/21 clonidine HCl 0.1 mg tablet 0.1 mg PO BID 04/01/21 escitalopram oxalate 20 mg tablet 20 mg PO DAILY 04/01/21 hydroxyzine HCl 50 mg tablet 50 mg PO BEDTIME 04/01/21 mirtazapine 45 mg tablet 45 mg PO BEDTIME 04/01/21 oxcarbazepine 300 mg tablet 300 mg PO BID 04/01/21 prazosin 1 mg capsule 1 mg PO BEDTIME 04/01/21 sodium fluoride 1.1 %-potassium PO 04/01/21 nitrate 5 % dental paste aripiprazole 5 mg tablet 5 mg PO DAILY 08/31/23 trazodone 100 mg tablet 200 mg PO BEDTIME PRN 08/31/23 Previous Rx's ?Medication ?Instructions ?Recorded hydrocortisone 1 %-pramoxine 1 % 1 appl NM QID PRN hemorrhoids #10 04/01/21 rectal foam (Proctofoam HC) grams dicyclomine 10 mg capsule 20 mg (2 x 10 mg) PO TID 3 days 05/08/24 #18 caps acetazolamide 250 mg tablet 500 mg (2 x 250 mg) PO BID #360 08/10/24 tabs oxcarbazepine 300 mg tablet 300 mg PO BID #180 tabs 08/10/24 Allergies Allergy/AdvReac Type Severity Reaction Status Date / Time nickel [NICKEL] Allergy Unknown RASH Verified 09/13/24 14:55 [facility] Past Medical History Attestation statement: The following information was validated with the patient. Source: nursing notes reviewed Medical History Seizure Asthma Scoliosis Surgical History Hx of appendectomy Social History Social History Alcohol intake: never Patient Tobacco Use Status: Current everyday Tobacco user Smoked in Last 30 Days: Yes Use of substances other than those prescribed or required for medical reasons: Yes Substance Use Type: Marijuana Substance Use Frequency: Daily Advance Directives: No Advance Directives Information Provided: No Patient : No Physical Exam ED Vital Signs: Vital Signs - 24 hr 09/13/24 14:40 Temperature 97.1 F Pulse Rate 73 Respiratory Rate 18 Blood Pressure 106/72 Pulse Oximetry 94 Oxygen Delivery Method Room Air BMI result Body Mass Index 54.8 Const General: cooperative, healthy appearing, comfortable, no acute distress and alert Nutritional Appearance: obese Orientation/consciousness: patient oriented x3 Limitations: no limitations HENMT Head: Yes normal to inspection Ears: hearing grossly normal bilaterally Face and sinus: Yes normal facial exam Mouth: Normal oral and palatal mucosa present and lip normal Eyes General: appearance normal, both eyes and all related structures Conjunctivae: conjunctivae normal Sclerae: sclerae normal EOM: EOMs intact bilaterally Neck Neck: Yes normal visual inspection, Yes full ROM, Yes no lymphadenopathy and Yes trachea midline Chest Chest palpation & inspection: normal inspection of the chest Resp Effort & Inspection: normal respiratory effort and able to speak in complete sentences Auscultation: clear to auscultation bilaterally Cardio Rate: regular rate GI Inspection: Yes normal to inspection and Yes Abdominal panniculus present Palpation (GI): Soft to palpation, No hepatosplenomegaly present and Other GI palpation findings present (negative murphys, negative peritoneal signs, no gaurding) Auscultation: normal bowel sounds Rectal Exam - Female: deferred General: Yes bladder normal to palpation and Yes no CVA tenderness Bimanual exam- vagina & uterus: bladder normal to palpation Back/Spine/Pelvis Back: no CVA tenderness Skin General skin exam: no rashes or lesions noted Neuro General: patient oriented x3 Extrem General: Yes normal to inspection Course Course Course Narrative: RME, this is a rapid medical exam performed by Hollis Olsen please refer to primary provider for complete H&P- 28-year-old female presents for evaluation of upper abdominal pain with nausea. She was having an outpatient gallbladder ultrasound and found to have gallstones. She presents due to gallstones that worsening abdominal pain. Plan for labs and we will get an ultrasound of the right upper quadrant as there was no recent imaging in our system. Medications Administered Discontinued Medications Generic Name Dose Route Start Last Admin Trade Name Freq PRN Reason Stop Dose Admin Oxycodone HCl 10 mg 09/13/24 19:59 09/13/24 20:53 Oxycodone Hcl Immed Release 5 Mg Tablet PO 09/13/24 20:00 10 mg ONCE ONE Administration Medical Decision Making Medical Decision Making [facility] Narrative: Well-appearing 28y/o F presenting with RUQ pain that is well controlled during her ED visit. Her abd is soft nontender and she is afebrile. No active GI sxs.Given overall H and P, abd labs and RUQ was ordered. It showed no evidence of leukocytosis, transamnitis, or electrolyte imbalance. With this presentation the following ddx less likely: acute surgical abd, pancreatitis, cholecystitis, choledocolithiasis, gastitis. Lower abd pathology deemed unikely. She has three likely risk factors out of four for putting her at increased risk of gallbladder complications (female, fertile, obesity), but she is young. RUQ U/S revealed a gallstone without evidence of infection or current obstruction. She does not meet admission criteria. Emergent consult with general surgery deferred at this time. Patient already has specialist appt scheduled. Just in case she was given [facility] gen surg information as well. She is hydrated and maintaining fluids, she was d/c to home with plan as below and agreed. Differential Diagnosis Differential Diagnoses: The differential diagnosis associated with the presentation includes see [facility] Admission/Observation Consideration of admission/observation: Escalation of care including admission/observation considered had patient's workup and presentation require further observation and medical intervention. Lab Data [facility] Lab Attestation statement: I reviewed the patient's lab results. 09/13/24 15:03 09/13/24 15:03 Labs: Lab Results 09/13/24 Range/Units 15:03 WBC 6.9 (4.8-10.8) X10*3/uL RBC 4.76 (4.20-5.50) X10*6/uL Hgb 13.3 (12.0-16.0) g/dl Hct 40.2 (37.0-47.0) % MCV 84.5 (80.0-98.0) fL MCH 27.9 (27.0-33.0) pg MCHC 33.1 (31.0-35.0) g/dl RDW 12.3 (11.0-16.0) % Plt Count 188 (160-400) X10*3/uL MPV 9.3 L (9.4-12.3) fL Immature Gran % (Auto) 0.3 (0.0-0.4) % Neut % (Auto) 55.6 (45-73) % Lymph % (Auto) 36.5 (20-40) % [place] % (Auto) 5.8 (2-11) % Eos % (Auto) 1.4 (0-4) % Baso % (Auto) 0.4 (0-2) % Lymph # (Auto) 2.5 (1.2-4.9) X10*3/uL [place] # (Auto) 0.4 (0.1-1.2) X10*3/uL Eos # (Auto) 0.1 (0.0-0.4) X10*3/uL Baso # (Auto) 0.0 (0.0-0.2) X10*3/uL Abs Immat Gran (auto) 0.02 (0.00-0.03) X10*3/uL Absolute Neuts (auto) 3.9 (2.0-8.3) x10*3/uL Absolute Nucleated RBC 0.000 (0.0-0.012) X10*3/uL Nucleated RBC % (auto) 0.0 (0.0-0.2) /100WBC Sodium 142 (135-145) mmol/L Potassium 4.1 (3.3-5.1) mmol/L Chloride 113 H (96-108) mmol/L Carbon Dioxide 22 (22-29) mmol/L Anion Gap 11 L (12-20) BUN 15 (9-16) mg/dL Creatinine 0.90 (0.5-1.4) mg/dL Estim Creat Clear Calc 146.2 Estimated GFR > 60 Random Glucose 89 (60-115) mg/dL Calcium 9.5 (8.4-10.2) mg/dL Total Bilirubin 0.4 (0.0-1.0) mg/dL AST 50 H (5-31) U/L ALT 48 H (0-31) U/L Alkaline Phosphatase 51 (39-117) U/L Total Protein 6.9 (6.5-8.0) g/dL Albumin 4.1 (3.5-5.0) g/dL Lipase 35 (8-78) U/L Beta HCG, Quant < 2 mIU/mL Independent Interpretation I performed an independent interpretation of an: Ultrasound Interpretation: no sludge or inflammation noted. Probable gallstone Radiology Impression Discussion of test interpretation with radiology: I have reviewed the radiologist's reading. Radiologist Impression: stable, gallstone with signs of infection/ inflammation, or obstruction. Tests considered The following testing was considered but not selected: CT Abd/ pelvis imaging: nontender abdomen history makes other pathology with different imaging order to confirm more likely- would have updated plan as needed during stay if labs/imaging/ patient's status changes Prescription Management I considered prescription management with: Pain Medication well-controlled, no RX for pain control warranted; no infection, PO abx not indicated offered anti-emetic agent, patient has declined this offer and verbals understanding of how this medicine could help her back to me Chronic Conditions Patient?s care impacted by: Other (severe obesity) Discharge Plan Discharge Clinical Impression: Biliary colic, Gallstone Patient Disposition: Home, Self-Care Instructions: Biliary Colic (ED), Gallstones (ED) Additional Instructions: You were seen in the emergency department today due to right upper quadrant pain. Had an ultrasound that showed that you have a gallstone without evidence for infection of your gallbladder at this time. Your lab work was reassuring. He already had planned outpatient consult with General surgery. Although it did not show any infection today it does not mean this can not occur in the interim so if you do experience any worsening pain or intractable vomiting please come back to the emergency department. You have declined any Zofran today we discussed the importance of diet modifications in the meantime she handout for additional details. Hope you continue to feel well. Prescriptions: No Action Proctofoam HC 1-1 % foam 1 appl NM QID PRN (Reason: hemorrhoids) Qty: 10 0RF dicyclomine 10 mg capsule 20 mg PO TID 3 Days Qty: 18 0RF oxcarbazepine 300 mg tablet 300 mg PO BID Qty: 180 3RF acetazolamide 250 mg tablet 500 mg PO BID Qty: 360 2RF oxcarbazepine 300 mg tablet 300 mg PO BID escitalopram oxalate 20 mg tablet 20 mg PO DAILY mirtazapine 45 mg tablet 45 mg PO BEDTIME hydroxyzine HCl 50 mg tablet 50 mg PO BEDTIME acetazolamide 250 mg tablet PO prazosin 1 mg capsule 1 mg PO BEDTIME clonidine HCl 0.1 mg tablet 0.1 mg PO BID sodium fluoride-pot nitrate 1.1-5 % paste PO trazodone 100 mg tablet 200 mg PO BEDTIME PRN aripiprazole 5 mg tablet 5 mg PO DAILY Referrals: [facility] [Physician] - 2 days Interventions: ED Discharge Assessment Last Done: 09/13/24 21:41 Discharge Date/Time: 09/13/24 21:41 Print Language: [place]
[2024-09-13 15:33] LABS: MANUAL DIFF FLAG NO
[2024-09-13 15:35] LABS: Basophils Percent Auto 0.4 % (0-2); Eosinophils Absolute Auto 0.1 X10*3/uL (0.0-0.4); Eosinophils Percent Auto 1.4 % (0-4); Hematocrit 40.2 % (37.0-47.0); Hemoglobin 13.3 g/dl (12.0-16.0); Imm Gran Abs Auto 0.02 X10*3/uL (0.00-0.03); Imm Gran Pct Auto 0.3 % (0.0-0.4); Lymphocytes Absolute Auto 2.5 X10*3/uL (1.2-4.9); Lymphocytes Percent Auto 36.5 % (20-40); Mean Corpuscular HGB Conc 33.1 g/dl (31.0-35.0); Mean Corpuscular Hemoglobin 27.9 pg (27.0-33.0); Mean Corpuscular Volume 84.5 fL (80.0-98.0); Mean Platelet Volume 9.3 fL (9.4-12.3); Monocytes Absolute Auto 0.4 X10*3/uL (0.1-1.2); Monocytes Percent Auto 5.8 % (2-11); Neutrophils Absolute Auto 3.9 x10*3/uL (2.0-8.3); Neutrophils Percent Auto 55.6 % (45-73); Platelet Count 188 X10*3/uL (160-400); Red Blood Count 4.76 X10*6/uL (4.20-5.50); Red Cell Distribution Width 12.3 % (11.0-16.0); White Blood Count 6.9 X10*3/uL (4.8-10.8)
[2024-09-13 15:58] LABS: Alanine Aminotransferase 48 U/L (0-31); Albumin Level 4.1 g/dL (3.5-5.0); Alkaline Phosphatase 51 U/L (39-117); Anion Gap 11 (12-20); Aspartate Amino Transferase 50 U/L (5-31); Bilirubin Total 0.4 mg/dL (0.0-1.0); Blood Urea Nitrogen 15 mg/dL (9-16); Calcium 9.5 mg/dL (8.4-10.2); Carbon Dioxide 22 mmol/L (22-29); Chloride 113 mmol/L (96-108); Creatinine Clr Calc Pharmacy 146.2; Estimated Glomerular Filt Rate > 60; Glucose Random 89 mg/dL (60-115); HCG Quantitative < 2 mIU/mL; Lipase 35 U/L (8-78); Potassium 4.1 mmol/L (3.3-5.1); Sodium 142 mmol/L (135-145); Total Protein 6.9 g/dL (6.5-8.0)
--- NOTE | 2024-09-13 19:47 | PC.NURSE ---
PT comes from waiting room. Pt is A/ox3, resting quietly in no acute distress respirations even an unlabored, no grimacing grunting or guarding noted. PT reports she had an ultrasound to rule out Fatty Liver disease and had an incidental finding out cholelithiasis . Pt reports since receiving the call pt has had severe abdominal pain after eating. PT also remarked that she called EMS at 1:40 and since then has had nothing to eat and has been in pain waiting and that she just take this thing out . PT requesting food. informed pt that she would be npo until a provider indicates otherwise, especially since she reports of severe abdominal pain with eating. Call chawla within reach. Plan of care ongoing
[2024-09-13] MEDS: oxyCODONE HCl Immed Release 5 MG TABLET 10 MG PO (20:53)
[2024-09-13 21:30] VITALS: BP 122/76; PULSE 82; RESP 18; TEMP 36.4; O2SAT 98
[2024-09-13 21:41] VITALS: BP 122/76; PULSE 82; RESP 18; TEMP 36.4; O2SAT 98
== END 2024-09-13 21:41 | disposition home or self-care (01) ==
PROVIDERS: Physician Assistant; Emergency Provider Emergency Medicine Emergency Medical Services; PCP Family Medicine
DX: R10.11 Right upper quadrant pain (principal); K80.20 Calculus of gallbladder without cholecystitis without obstruction; K80.50 Calculus of bile duct without cholangitis or cholecystitis without obstruction
CPT/HCPCS: 36415; 76705; 80053; 83690; 84702; 85025; 99284

== ENCOUNTER → 2024-09-13 14:58 | Outpatient (BNV) | payer OTHER, SELFPAY | PROVIDERS: Visit Provider Radiology Diagnostic Radiology | DX: K80.20 Calculus of gallbladder without cholecystitis without obstruction (principal) | CPT/HCPCS: 76705 ==